=== PATIENT | female | born 1990 | race Caucasian/White ===

== ENCOUNTER 2024-04-23 11:02 | Emergency (ER) | payer SELFPAY ==
[~2024-04-23] VITALS: Ht 157.5 cm; Wt 68.0 kg
[2024-04-23 11:12] VITALS: BP_SYST 133; PULSE 68; RESP 18; TEMP 98.6; O2SAT 97
[2024-04-23 11:15] VITALS: BP_SYST 133; PULSE 68; RESP 18; TEMP 98.6; O2SAT 97
== END 2024-04-23 12:49 | disposition home or self-care (01) ==
LOC: SED 11:02
DX: R51.9 Headache, unspecified (principal); R20.0 Anesthesia of skin
CPT/HCPCS: 70450-TC; 81025; 99284